=== PATIENT | female | born 1995 | race Caucasian/White ===

== ENCOUNTER 2021-04-05 12:09 | Emergency (ER) | payer OTHER, SELFPAY ==
--- NOTE | ~2021-04-05 | XR_ITS ---
EXAMINATION: XR wrist RT 2V EXAM DATE: 04/05/2021 12:42 INDICATION: Injury 2 months ago, pain and swelling radial side. TECHNIQUE: Frontal and lateral projections of the right wrist. There is no prior study for comparis on. FINDINGS: There are no acute right wrist fractures or dislocations identified. No periosteal reaction . There is no subcutaneous gas. The soft tissue is unremarkable. There are no radiopaque foreign b odies. IMPRESSION: 1. XR wrist RT 2V exam without acute osseous findings. Reviewed, dictated and finalized at location B.
[2021-04-05 12:21] VITALS: BP 112/59; PULSE 85; RESP 20; TEMP 36.9; O2SAT 100
[2021-04-05 14:04] VITALS: BP 109/73; PULSE 73; RESP 18; TEMP 36.3; O2SAT 99
--- NOTE | 2021-04-05 14:07 | ED.GENADULT ---
HPI - General Adult General Chief complaint: Extremity Injury, Upper <Vadim Abreu LandryJOANNE Alia Last Filed: 04/05/21 14:12> Stated complaint: wrist pain <JOANNE Felix Last Filed: 04/05/21 14:12> Time Seen by Provider: 04/05/21 13:42 <JOANNE Felix Last Filed: 04/05/21 14:12> Source: patient and RN notes reviewed <Vadim Alatorre PA-C Alia Last Filed: 04/05/21 14:12> Mode of arrival: ambulatory <Vadim Alatorre PA-C Alia Last Filed: 04/05/21 14:12> Limitations: no limitations <Vadim Alatorre PA-C Alia Last Filed: 04/05/21 14:12> History of Present Illness HPI narrative: Patient is a 25-year-old female who presents for evaluation of right wrist pain has been present for 2 months patient notes aching pain intermittently to the radial aspect of the wrist worse with activity and movement has not been seen for this complaint denies other injuries or trauma presents in no distress not take anything for symptom <ZORAN FelixRadha Rojo Last Filed: 04/05/21 14:12> Related Data Allergies/adverse reactions: Allergies Allergy/AdvReac Type Severity Reaction Status Date / Time No Known Allergies Allergy Verified 04/05/21 12:23 <Vadim Alatorre PA-C Alia Last Filed: 04/05/21 14:12> Review of Systems Review of Systems: All systems reviewed & are unremarkable except as noted in HPI and below <Vadim Alatorre PA-C Alia Last Filed: 04/05/21 14:12> Exam Narrative: GENERAL: Well-appearing, well-nourished, and in no acute distress. HEAD: Normocephalic, atraumatic. EYES: PERRLA and EOMI. ENT: Nares clear, no rhinorrhea or epistaxis. Mucous membranes moist. CHEST: Clear to auscultation. No respiratory distress. No wheezes rales or rhonchi HEART: Regular rate and rhythm. No murmur heard. EXTREMITIES: Normal range of motion. No edema. Tenderness of the radial aspect of the right wrist no deformity SKIN: Warm, dry, no rash. NEURO: No focal deficits. Alert and oriented x3. Neurovascularly intact PSYCH: Normal mood and affect. <JOANNE Felix Last Filed: 04/05/21 14:12> Course Course Emergency Course: Patient evaluated in the emergency department no concerning findings will be discharged with primary care follow-up made aware of findings ABCs and vital signs intact and stable <JOANNE Felix Last Filed: 04/05/21 14:12> Vital Signs Vital signs: Vital Signs Temperature 98.4 F 04/05/21 12:21 Pulse Rate 85 04/05/21 12:21 Respiratory Rate 20 04/05/21 12:21 Blood Pressure 112/59 L 04/05/21 12:21 Pulse Oximetry 100 04/05/21 12:21 Temperature 97.3 F L 04/05/21 14:04 Pulse Rate 73 04/05/21 14:04 Respiratory Rate 18 04/05/21 14:04 Blood Pressure 109/73 04/05/21 14:04 Pulse Oximetry 99 04/05/21 14:04 <Vadim Alatorre PA-C Last Filed: 04/05/21 14:12> Medical Decision Making MDM Narrative Medical decision making narrative: Patients injury or pain is consistent with musculoskeletal etiology. No signs of neurological or vascular compromise on exam. Compartments and tisues are soft without signs of compartment syndrome. Pain is felt appropriate for further evaluation on an outpatient basis. <JOANNE Felix Last Filed: 04/05/21 14:12> Vital Signs Vital Signs: Vital Signs Temperature 98.4 F 04/05/21 12:21 Pulse Rate 85 04/05/21 12:21 Respiratory Rate 20 04/05/21 12:21 Blood Pressure 112/59 L 04/05/21 12:21 Pulse Oximetry 100 04/05/21 12:21 Temperature 97.3 F L 04/05/21 14:04 Pulse Rate 73 04/05/21 14:04 Respiratory Rate 18 04/05/21 14:04 Blood Pressure 109/73 04/05/21 14:04 Pulse Oximetry 99 04/05/21 14:04 <JOANNE Felix Last Filed: 04/05/21 14:12> Imaging Data Radiologist's impression: ITS Impressions Wrist X-Ray 04/05/21 12:44 IMPRESSION: 1. XR wrist RT 2V exam without acute osseous findings. <Vadim Hun
== END 2021-04-05 14:20 | disposition home or self-care (01) ==
PROVIDERS: Emergency Provider General Practice; PCP Hospitalist
DX: S63.501A Unspecified sprain of right wrist, initial encounter (principal); S66.911A Strain of unspecified muscle, fascia and tendon at wrist and hand level, right hand, initial encounter; X58.XXXA Exposure to other specified factors, initial encounter
CPT/HCPCS: 73100; 99283